=== PATIENT | female | born 1985 | race Caucasian/White ===

== ENCOUNTER 2017-06-04 08:51 | Emergency (ER) | payer SELFPAY ==
[2017-06-04 09:03] VITALS: BP 132/80
--- NOTE | 2017-06-04 09:31 | ER Document Report ---
ED Oral Problem - General Chief Complaint: Toothache Stated Complaint: TOOTH PAIN Time Seen by Provider: 06/04/17 09:18 Mode of Arrival: Ambulatory Information source: Patient - HPI Patient complains to provider of: Swelling of face Notes: Patient is here with complaints of left cheek swelling. She states that she has had some dental pain for the last few days and woke up this morning noticing that her left cheek was slightly swollen and slightly painful. She denies fevers. She denies nausea, vomiting, diarrhea. No difficulty breathing or swallowing. She denies any headache, blurred vision. No facial redness. No rash. She denies any chronic medical problems. She states that she has been taking ibuprofen for her pain which seems to be controlling her pain quite well. She denies any other complaints at this time. She recently moved to the area and does not currently have a dentist. - Related Data Allergies/Adverse Reactions: No Known Allergies Allergy (Unverified 06/04/17 08:53) Past Medical History - Social History Smoking Status: Unknown if Ever Smoked Family History: Reviewed & Not Pertinent Review of Systems - Review of Systems -: Yes All other systems reviewed and negative Physical Exam - Vital signs Vitals: Temp Pulse Resp BP Pulse Ox 97.9 F 79 18 132/80 H 96 06/04/17 08:59 06/04/17 08:59 06/04/17 08:59 06/04/17 08:59 06/04/17 08:59 - Notes Notes: GENERAL: alert, cooperative, nontoxic, no distress. HEAD: normocephalic, atraumatic EYES: conjunctiva pink without discharge, no external redness or swelling. EARS: no external swelling, no external redness NOSE: atraumatic, no external swelling MOUTH/THROAT: mucous membranes moist and pink. Patient is noted to have a significantly decayed tooth to the left upper third molar. This is the tooth is causing her some pain. I do not appreciate a drainable abscess on the gum. Mild tenderness in this area. She has no trismus or drooling. No stridor. She is noted to have some mild swelling to the left cheek, no drainable abscess palpated, no facial redness or cellulitis. NECK: soft, supple, full range of motion, no meningismus. CHEST: no distress, lungs clear and equal throughout. No wheezing, rales, rhonchi. CARDIAC: regular rate and rhythm, no murmur, normal capillary refill, normal pulses. BACK: full range of motion, no CVA tenderness. EXTREMITIES: full range of motion of all extremities. No redness, no swelling. NEURO: alert and oriented 3, no focal deficits, full range of motion of all extremities. PYSCH: appropriate mood, affect. Patient is cooperative. SKIN: pink, warm, dry, no rash. Course - Re-evaluation Re-evalutation: 06/04/17 09:28 Patient is nontoxic appearing with stable vitals. She is here with left upper dental pain for the last 2-3 days and waking up this morning with some mild swelling to the left face. On exam she is a significantly decayed tooth to her left upper third molar. She is noted to have some mild swelling to the left cheek. I do not appreciate any drainable abscess at this time. Likely has a dental abscess that is in the process of forming. This point I will discharge the patient home with prescription for Pen-Vee K. She declined pain medication at this time, she states that ibuprofen has been doing fine to keep her pain under control. She will be given a referral to dentist in the area. She is instructed to follow-up with a dentist at the next available appointment. Follow-up sooner for worsening pain, high fever, difficulty breathing or swallowing, persistent vomiting, or for any further concerns. The patient is noted to have elevated blood pressure during today's emergency department visit. The patient was informed of this finding. The patient was instructed that this may be related to pre-hypertension and requires further evaluation with a primary care provider. The patient has no hypertensive symptoms at this time. The patient's emergency department workup and current diagnosis were explained to the patient and or family. Follow-up instructions were provided. Medications if prescribed were discussed. Instructions for when to return to the emergency department including specific worrisome symptoms were discussed with the patient and/or family. - Vital Signs Vital signs: Temp Pulse Resp BP Pulse Ox 97.9 F 79 18 132/80 H 96 06/04/17 08:59 06/04/17 08:59 06/04/17 08:59 06/04/17 08:59 06/04/17 08:59 Discharge - Discharge Clinical Impression: Dental abscess Condition: Stable Disposition: HOME, SELF-CARE Instructions: [facility], Penicillin V K ([facility]), Toothache ([facility]), Abscess ([facility]), Dentist Additional Instructions: Take medications as prescribed. Continue to take ibuprofen as needed for pain. You may also take 1000 mg of Tylenol every 6 hours if needed for pain control as well. Apply warm compresses to the sore area. Follow-up with a dentist at the next available appointment. Follow-up sooner or return the emergency department for worsening pain, fever, worsening swelling, difficulty breathing or swallowing, persistent vomiting, or for any further concerns. Your blood pressure was elevated during today's visit. Have this rechecked with your doctor. Prescriptions: Penicillin V Potassium [Penicillin Vk 500 mg Tablet] 500 mg PO TID #30 tablet Forms: Elevated Blood Pressure, Smoking Cessation Education Referrals: [facility] [Provider Group] - Follow up as needed [facility] [Provider Group] - Follow up as needed
== END 2017-06-04 09:41 | disposition home or self-care (01) ==
LOC: ER 08:51
DX: K04.7 Periapical abscess without sinus (principal); K02.9 Dental caries, unspecified; K08.89 Other specified disorders of teeth and supporting structures; R03.0 Elevated blood-pressure reading, without diagnosis of hypertension
CPT/HCPCS: 99282